=== PATIENT | male | born 1955 | race Caucasian/White ===

== ENCOUNTER 2023-04-24 12:14 | Emergency (ER) | payer MEDICARE, BC, OTHER ==
[~2023-04-24] VITALS: Ht 172.7 cm; Wt 95.5 kg
[2023-04-24] MEDS ORDERED: METO1TAB7 (12:35)
[2023-04-24] MEDS ORDERED: TRUL0.5I (12:35)
[2023-04-24] MEDS ORDERED: ATOR1TAB21 (12:35)
[2023-04-24] MEDS ORDERED: QUET1TAB17 (12:35)
[2023-04-24] MEDS ORDERED: SERT25TA21 (12:35)
[2023-04-24] MEDS ORDERED: LISI20TA33 (12:35)
[2023-04-24 13:39] LABS: HEMATOCRIT 44.7 % (42.0-52.0); HEMOGLOBIN 15.8 g/dl (13.5-17.5); MEAN CORPUSCULAR HEMOGLOBIN 31.3 pg (27.0-33.0); MEAN CORPUSCULAR HGB CONC 35.3 g/dl (32.0-36.5); MEAN CORPUSCULAR VOLUME 88.7 fl (80.0-96.0); PLATELET COUNT, AUTOMATED 257 10^3/uL (150-450); RED BLOOD COUNT 5.04 10^6/uL (4.30-6.10); WHITE BLOOD COUNT 10.9 10^3/uL (4.0-10.0)
[2023-04-24 14:00] LABS: ETHYL ALCOHOL (ETHANOL) 0.005 % (0.000-0.010)
[2023-04-24 14:01] LABS: ACETAMINOPHEN LEVEL < 2.0 UG/ML (10.0-20.0)
[2023-04-24 14:02] LABS: ALBUMIN 3.9 G/DL (3.2-5.2); ALKALINE PHOSPHATASE 85 U/L (46-116); ALT/SGPT 22 U/L (7.0-40); AST/SGOT 13 U/L (<34); BILIRUBIN,DIRECT 0.8 MG/DL (<0.4); BILIRUBIN,TOTAL 1.9 MG/DL (0.3-1.2); BLOOD UREA NITROGEN 22 MG/DL (9-23); CALCIUM LEVEL 8.8 MG/DL (8.3-10.6); CARBON DIOXIDE LEVEL 24 MMOL/L (20-31); CHLORIDE LEVEL 111 MMOL/L (98-107); CREATININE FOR GFR 0.68 MG/DL (0.70-1.30); GLOMERULAR FILTRATION RATE > 60.0 (>49); GLUCOSE, FASTING 110 MG/DL (74-106); POTASSIUM SERUM 4.1 MMOL/L (3.5-5.1); SALICYLATE LEVEL < 3.0 MG/DL (<30); SODIUM LEVEL 141 MMOL/L (136-145); TOTAL PROTEIN 6.9 G/DL (5.7-8.2)
[2023-04-24 14:06] LABS: THYROID STIMULATING HORMONE 1.558 uIU/ML (0.55-4.78)
[2023-04-24 15:17] LABS: AMPHETAMINES LEVEL URINE NEGATIVE (NEGATIVE); BARBITURATES URINE NEGATIVE (NEGATIVE); BENZODIAZEPINES URINE NEGATIVE (NEGATIVE); CANNABINOIDS URINE NEGATIVE (NEGATIVE); COCAINE METABOLITE URINE NEGATIVE (NEGATIVE); METHADONE URINE NEGATIVE (NEGATIVE); OPIATES URINE NEGATIVE (NEGATIVE); PHENCYCLIDINE URINE NEGATIVE (NEGATIVE)
[2023-04-24 18:37] LABS: AMORPHOUS SEDIMENT LARGE (NEGATIVE); APPEARANCE, URINE TURBID (CLEAR); BACTERIA, URINE AUTO NEGATIVE (NEGATIVE); BILIRUBIN, URINE AUTO NEGATIVE (NEGATIVE); BLOOD, URINE BLOOD NEGATIVE (NEGATIVE); COLOR, URINE YELLOW (YELLOW); GLUCOSE, URINE (UA) AUTO NEGATIVE (NEGATIVE); KETONE, URINE AUTO NEGATIVE (NEGATIVE); LEUKOCYTE ESTERASE, URINE AUTO NEGATIVE (NEGATIVE); MUCUS, URINE SMALL (NEGATIVE); NITRITE, URINE AUTO NEGATIVE (NEGATIVE); PROTEIN, URINE AUTO NEGATIVE (NEGATIVE); RBC, URINE AUTO 0 /HPF (0-3); SQUAMOUS EPITHELIAL CELL UR AU 0 /HPF (0-6); WBC, URINE AUTO 3 /HPF (0-3)
[2023-04-24] MEDS ORDERED: METOPROLOL SUCC (TopROL XL) 50MG **XL** TAB PO ONE (21:05)
[2023-04-24] MEDS ORDERED: QUEtiapine FUMARATE 25 MG TAB PO ONE (21:05)
[2023-04-24] MEDS ORDERED: ATORVASTATIN 20 MG TAB PO ONE (21:05)
[2023-04-24 21:13] VITALS: BP 119/75
[2023-04-25] MEDS ORDERED: SERTRALINE HCL 25 MG TABLET PO ONE (12:20)
[2023-04-25 12:56] VITALS: BP 130/80; TEMP 96.6; O2SAT 98
== END 2023-04-25 13:25 ==
LOC: M ED 12:14
DX: R45.851 Suicidal ideations (principal); F32.A Depression, unspecified; I44.0 Atrioventricular block, first degree; E11.9 Type 2 diabetes mellitus without complications; I10 Essential (primary) hypertension; E78.5 Hyperlipidemia, unspecified; Z79.811 Long term (current) use of aromatase inhibitors; Z79.02 Long term (current) use of antithrombotics/antiplatelets; Z79.899 Other long term (current) drug therapy

== ENCOUNTER 2024-03-06 17:16 | Inpatient (IN) | payer MEDICARE, BC ==
[~2024-03-06] VITALS: Ht 172.7 cm; Wt 93.2 kg
[~2024-03-06 17:16] MED LIST: ATOR1TAB21 PO; LISI20TA33 PO; METO1TAB7 PO; QUET1TAB17 PO; SERT25TA21; TRUL0.5I INJ
[2024-03-06 18:48] LABS: HEMATOCRIT 41.7 % (42.0-52.0); HEMOGLOBIN 15.1 g/dl (13.5-17.5); MEAN CORPUSCULAR HEMOGLOBIN 32.1 pg (27.0-33.0); MEAN CORPUSCULAR HGB CONC 36.2 g/dl (32.0-36.5); MEAN CORPUSCULAR VOLUME 88.7 fl (80.0-96.0); PLATELET COUNT, AUTOMATED 252 10^3/uL (150-450); WHITE BLOOD COUNT 10.1 10^3/uL (4.0-10.0)
[2024-03-06 19:09] LABS: ETHYL ALCOHOL (ETHANOL) < 0.003 % (0.000-0.010)
[2024-03-06 19:11] LABS: ALBUMIN 4.1 G/DL (3.2-5.2); ALKALINE PHOSPHATASE 87 U/L (46-116); ALT/SGPT 26 U/L (7.0-40); AST/SGOT 16 U/L (<34); BILIRUBIN,TOTAL 2.7 MG/DL (0.3-1.2); BLOOD UREA NITROGEN 13 MG/DL (9-23); CARBON DIOXIDE LEVEL 24 MMOL/L (20-31); CHLORIDE LEVEL 108 MMOL/L (98-107); CREATININE FOR GFR 0.71 MG/DL (0.70-1.30); GLOMERULAR FILTRATION RATE > 60.0 (>49); GLUCOSE, FASTING 88 MG/DL (74-106); POTASSIUM SERUM 3.7 MMOL/L (3.5-5.1); SALICYLATE LEVEL < 3.0 MG/DL (<30); SODIUM LEVEL 139 MMOL/L (136-145); TOTAL PROTEIN 7.3 G/DL (5.7-8.2)
[2024-03-06 19:13] LABS: THYROID STIMULATING HORMONE 2.517 uIU/ML (0.55-4.78)
[2024-03-06 19:57] LABS: AMPHETAMINES LEVEL URINE NEGATIVE (NEGATIVE)
[2024-03-06 19:58] LABS: BARBITURATES URINE NEGATIVE (NEGATIVE); BENZODIAZEPINES URINE NEGATIVE (NEGATIVE); CANNABINOIDS URINE NEGATIVE (NEGATIVE); COCAINE METABOLITE URINE NEGATIVE (NEGATIVE); METHADONE URINE NEGATIVE (NEGATIVE); OPIATES URINE NEGATIVE (NEGATIVE); PHENCYCLIDINE URINE NEGATIVE (NEGATIVE)
[2024-03-06] MEDS ORDERED: TRAZ-257 PO (20:27)
[2024-03-06] MEDS ORDERED: ZOLO100T PO (20:52)
[2024-03-06] MEDS ORDERED: MAALOX 30 ML SUSP *UDC PO PRN (20:55)
[2024-03-06] MEDS ORDERED: MOM 30ML SUSPENSION UDC PO PRN (20:55)
[2024-03-06] MEDS ORDERED: HOME MED LIST COMPLETE! XX SCH (20:55)
[2024-03-06] MEDS: traZODone 50 MG TAB PO PRN (22:15)
[2024-03-06] MEDS: ACETAMINOPHEN TAB 650MG DOSE (2X325MG) PO PRN (22:15)
[2024-03-07 09:31] VITALS: BP 148/82; TEMP 97.4; O2SAT 97
[2024-03-07] MEDS: METOPROLOL SUCC (TopROL XL) 50MG **XL** TAB PO SCH (09:48)
[2024-03-07] MEDS: SERTRALINE 100 MG TAB PO SCH (09:48)
[2024-03-07] MEDS: diphenhydrAMINE 25MG CAP PO PRN (09:48)
[2024-03-07] MEDS ORDERED: GLUCAGON INJ 1MG VIAL SC PRN (16:30)
[2024-03-07] MEDS ORDERED: DEXTROSE 50% 50ML SYRINGE IV PRN (16:30)
[2024-03-07] MEDS ORDERED: GLUCOSE 4 GM CHEW PO PRN (16:30)
[2024-03-07 16:35] VITALS: BP 138/84; TEMP 98.2; O2SAT 97
[2024-03-07] MEDS: INSULIN LISPRO (NovoLOG) PER UNIT SC SCH ×2 (17:30→20:27)
[2024-03-07] MEDS: metFORMIN (GLUCOPHAGE) 500MG TAB PO SCH (17:42)
[2024-03-07] MEDS: ATORVASTATIN 20 MG TAB PO SCH (20:28)
[2024-03-07] MEDS: traZODone 100 MG TAB PO SCH (20:28)
[2024-03-08 06:18] VITALS: BP 123/68; TEMP 97.8; O2SAT 99
[2024-03-08 15:31] VITALS: BP 119/69; TEMP 97.7; O2SAT 100
[2024-03-08] MEDS: IBUPROFEN 400MG TAB PO PRN (20:23)
[2024-03-09 06:21] VITALS: BP 137/76; TEMP 97.4; O2SAT 96
[2024-03-09 17:59] VITALS: BP 142/86; TEMP 97.7
[2024-03-09] MEDS: ARIPiprazole 2 MG TAB PO SCH (20:32)
[2024-03-09 20:33] VITALS: BP 130/71
[2024-03-10 06:43] VITALS: BP 136/90; TEMP 98.2; O2SAT 98
[2024-03-10 16:37] VITALS: BP 132/72; TEMP 98.1; O2SAT 98
[2024-03-11 06:20] VITALS: BP 140/82; TEMP 95; O2SAT 96
[2024-03-11 12:13] VITALS: TEMP 97.4
[2024-03-11 17:15] VITALS: BP 142/77; TEMP 97.9; O2SAT 97
[2024-03-12] MEDS ORDERED: SERT-141 PO (06:16)
[2024-03-12] MEDS ORDERED: ABIL1TAB13 PO (06:16)
[2024-03-12 06:30] VITALS: BP 142/86; TEMP 97.6; O2SAT 96
[2024-03-12 08:24] VITALS: BP 142/75
[2024-03-12] MEDS: SERTRALINE HCL 50 MG TAB PO SCH (08:25)
== END 2024-03-12 10:59 | disposition home or self-care (01) | DRG 881 ==
LOC: M ED 17:16 → M ED INP 20:52 → M PSY 03-07 08:39
PROVIDERS: ADMIT Psychiatry & Neurology Child & Adolescent Psychiatry; ATTEND Psychiatry & Neurology Child & Adolescent Psychiatry
DX: F32.9 Major depressive disorder, single episode, unspecified (principal); R45.851 Suicidal ideations; Z91.148 Patient's other noncompliance with medication regimen for other reason; E11.9 Type 2 diabetes mellitus without complications; F31.9 Bipolar disorder, unspecified; E78.5 Hyperlipidemia, unspecified; Z79.899 Other long term (current) drug therapy; I10 Essential (primary) hypertension; R45.850 Homicidal ideations; F41.9 Anxiety disorder, unspecified